=== PATIENT | male | born 1985 | race American Indian/Alaskan Native ===

== ENCOUNTER 2017-06-26 08:50 | Emergency (ER) | payer SELFPAY ==
[2017-06-26 09:36] VITALS: BP 129/66
[2017-06-26] MEDS ORDERED: TORADOL IM ONE (12:13)
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
== END 2017-06-26 13:57 | disposition home or self-care (01) ==
LOC: ED 08:50
DX: S39.012A Strain of muscle, fascia and tendon of lower back, initial encounter (principal); S13.4XXA Sprain of ligaments of cervical spine, initial encounter; V49.49XA Driver injured in collision with other motor vehicles in traffic accident, initial encounter; Y93.89 Activity, other specified; Y92.89 Other specified places as the place of occurrence of the external cause; Y99.8 Other external cause status
CPT/HCPCS: 72080; 73000; 96372; 99283; J1885